=== PATIENT | female | born 1950 | race Caucasian/White ===

== ENCOUNTER 2021-05-26 11:34 | Day surgery (SDC) | payer MEDICARE ==
[~2021-05-26] VITALS: Ht 175.3 cm; Wt 95.8 kg
[~2021-05-26 11:34] MED LIST: ASCO500C PO; ASPI-630 PO; CALC250T PO; CARV25TA2 PO; CHOL10004 PO; DIPH25CA58 PO; FURO-69 PO; GLUC-158 PO; HYDROmorphone 2 MG/ML VIAL IVP PRN; IV RINGERS,LACTATED 1000ML 1,000 ML IV SCH; LOSA-73 PO; LUTE1CAP3 PO; LYSI500T8 PO; MAGN500C10 PO; MILK140C PO; MORPHINE SULFATE 2 MG/ML INJ. IVP PRN; MULT-121 PO; OMEG-152 PO; PROCHLORPERAZINE 10 MG/2 ML VIAL. IVP PRN; RED600TA PO; RIVA20TA2 PO; fentaNYL PF VIAL 100 MCG/2 ML VIAL IVP PRN
[2021-05-26] MEDS ORDERED: BUPIVACAINE-EPI 0.25%-1:200000 MPF 30 ML VIAL. ONE (11:41)
[2021-05-26] MEDS ORDERED: EPINEPHrine VIAL 30 MG/30 ML VIAL ONE (11:41)
[2021-05-26] MEDS ORDERED: PROPOFOL 10 MG/ML (20ML) VIAL. IV ONE (12:21)
[2021-05-26] MEDS ORDERED: LIDOCAINE 2% PF 5 ML VIAL. ONE (12:21)
[2021-05-26] MEDS ORDERED: fentaNYL PF VIAL 100 MCG/2 ML VIAL ONE ×2 (12:23→13:53)
[2021-05-26] MEDS ORDERED: DEXAMETHASONE SOD PHOS 4 MG/ML VIAL ONE (12:24)
[2021-05-26] MEDS ORDERED: ONDANSETRON PF 4 MG/2 ML VIAL. ONE (12:24)
[2021-05-26] MEDS ORDERED: ePHEDrine PF IN SALINE 50 MG/10 ML SYRINGE. IV ONE (13:19)
[2021-05-26] MEDS ORDERED: BUPIVACAINE MPF 0.25% 30 ML VIAL. ONE (13:30)
--- NOTE | 2021-05-26 13:41 | PDOC4 ---
OPERATIVE NOTE Date: Date: May 26, 2021 Pre-Op Diagnosis: Medial meniscal tear with degenerative joint disease left knee Post-Op Diagnosis: Same Procedure Performed: Left knee arthroscopy with partial medial meniscectomy and joint debridement Surgeon: Tremayne Anesthesia Type: General Blood Loss: 20 cc Specimans Obtained: None Findings: See dictation Complications: None BLAIRE LIMON Jr. DO May 26, 2021 13:41
[2021-05-26] MEDS ORDERED: TRAM50TA PO (13:44)
--- NOTE | 2021-05-26 13:47 | DISCH ---
DISCHARGE INSTRUCTIONS Condition on Discharge Condition on Discharge: Stable Activity After Discharge Activity Instructions for Disc: Avoid exertion Bathing Instructions: Shower-keep dressing dry Driving Instructions after Dis: Do not drive today Wound Incision Care Wound/Incision Care: Ice to area for comfort, Keep wound elevated Other wound/incision instructi: May change dressings postoperative day #3 BLAIRE LIMON Jr. DO May 26, 2021 13:47
[2021-05-26] MEDS ORDERED: traMADol 50 MG TABLET ONE (14:10)
[2021-05-26] MEDS ORDERED: traMADol 50 MG TABLET PO ONE (14:15)
[2021-05-26 14:45] VITALS: BP 135/85
--- NOTE | 2021-05-26 15:06 | OP ---
DATE OF SURGERY: 05/26/2021 PREOPERATIVE DIAGNOSES: Left knee medial meniscal tear, degenerative joint disease. POSTOPERATIVE DIAGNOSES: Left knee medial meniscal tear, degenerative joint disease. PROCEDURE: Left knee arthroscopy with partial medial meniscectomy and joint debridement. SURGEON: Bennett Casper Jr, DO PHYSICAL THERAPIST ASSISTANT: Andriy Mitchell. ANESTHESIA: General. COMPLICATIONS: None. ESTIMATED BLOOD LOSS: 20 mL Standard dictation for presser first. DESCRIPTION OF PROCEDURE: The patient was taken to the operative suite, given a general anesthetic. Left lower extremity was placed in the knee hein, prepped and draped in a sterile fashion. Inferomedial and inferolateral portals were established. Knee was insufflated with saline. Visualization of the patellofemoral joint, noted there to be degenerative changes; however, these were stable. No loose cartilage was noted at this point. Scope was then taken into the medial gutter, no loose bodies were noted. Scope was then taken into the medial compartment, there was noted to be a very complex large tear of the posterior horn of the meniscus; therefore, a partial medial meniscectomy was undertaken and this was debrided back to stable tissue. There was significant damage grade 3, deep grade 3 changes on the tibial side of the joint as well as fracturing and injury to the medial compartment on the femoral side, which was unstable with probing. After debridement was undertaken of the chondral cartilage, there was still some overlying tissue remaining, but again these were deep grade III changes. After this was noted to be complete a partial meniscectomy and debridement, the ACL and the PCL were visualized and noted to be intact and stable with probing. The lateral compartment had some fissuring and some minor changes on the tibial side of the joint, but on the femoral side of the joint, again grade III changes, which were unstable. This was debrided using a shaver as well. After this was completely debrided, no loose bodies were noted within this area. Meniscus was noted to be stable. This was then copiously irrigated and suctioned dry. All instruments were then removed. Sterile dressing was applied after the wounds were reapproximated using nylon in an interrupted fashion and local had been placed. The patient was then taken from the operative bed to the postoperative bed, taken to the PACU in stable condition. SHELLEY DR: Shruthi TID: [id number]
== END 2021-05-26 14:55 | disposition home or self-care (01) ==
LOC: SURG 11:34
PROVIDERS: ATTEND Orthopaedic Surgery
DX: S83.242A Other tear of medial meniscus, current injury, left knee, initial encounter (principal); M17.12 Unilateral primary osteoarthritis, left knee; I48.91 Unspecified atrial fibrillation; I10 Essential (primary) hypertension; E03.9 Hypothyroidism, unspecified; Z79.82 Long term (current) use of aspirin; Z79.899 Other long term (current) drug therapy; Z98.890 Other specified postprocedural states; X58.XXXA Exposure to other specified factors, initial encounter; Y93.89 Activity, other specified; Y92.89 Other specified places as the place of occurrence of the external cause; Y99.8 Other external cause status
CPT/HCPCS: 29881; A4930; J0171; J0690; J1100; J2405; J2704; J3010; J3490